=== PATIENT | male | born 1970 | race Caucasian/White ===

== ENCOUNTER 2017-10-19 23:36 | Day surgery (SDC) | payer OTHER ==
[2017-10-19 23:53] VITALS: BMI 26.4
--- NOTE | 2017-10-20 01:23 | PDOC ---
History of Present Illness - History of Present Illness Initial Comments: 10/20/17 01:28 The patient is a 47 yo Male, with no significant past medical history, who presents to the emergency department for evaluation of diffuse abdominal pain since 6PM last night (7.5 hours ago). The patient reports his pain was a dull ache at onset around 6PM. He states the pain did not resolve which is why he presents to the ED at this time. He reports his pain is slightly worse to the lower quadrants bilaterally, however, reports "the pain is pretty much the same everywhere". He denies nausea, vomiting, diarrhea. He denies recent travels or sick contacts. He denies chest pain, SOB, dizziness. He denies dysuria, urgency, frequency, or hematuria. <Tia Villegas - Last Filed: 10/20/17 01:28> <Jenn Robles - Last Filed: 10/20/17 16:55> - General Chief Complaint: Pain Stated Complaint: STOMACH PAIN Time Seen by Provider: 10/20/17 00:42 Past History <Tia Villegas - Last Filed: 10/20/17 01:28> - Past Medical History COPD: No - Suicide/Smoking/Psychosocial Hx Smoking History: Never smoked <Jenn Robles - Last Filed: 10/20/17 16:55> - Past Medical History Allergies/Adverse Reactions: Allergies Allergy/AdvReac Type Severity Reaction Status Date / Time No Known Allergies Allergy Verified 10/19/17 23:53 Home Medications: Ambulatory Orders NK [No Known Home Medication] 10/20/17 Review of Systems - Review of Systems Able to Perform ROS?: Yes Comments:: 10/20/17 01:32 CONSTITUTIONAL: Absent: fever, chills, diaphoresis, generalized weakness, malaise, loss of appetite HEENT: Absent: rhinorrhea, nasal congestion, throat pain, throat swelling, difficulty swallowing, mouth swelling, ear pain, eye pain, visual Changes CARDIOVASCULAR: Absent: chest pain, syncope, palpitations, irregular heart rate, lightheadedness , peripheral edema RESPIRATORY: Absent: cough, shortness of breath, dyspnea with exertion, orthopnea, wheezing, stridor, hemoptysis GASTROINTESTINAL: (+) diffuse abdominal pain,Absent: abdominal distension, nausea, vomiting, diarrhea, constipation, melena, hematochezia GENITOURINARY: Absent: dysuria, frequency, urgency, hesitancy, hematuria, flank pain, genital pain MUSCULOSKELETAL: Absent: myalgia, arthralgia, joint swelling SKIN: Absent: rash, itching, pallor HEMATOLOGIC/IMMUNOLOGIC: Absent: easy bleeding, easy bruising, lymphadenopathy, frequent infections ENDOCRINE: Absent: unexplained weight gain, unexplained weight loss, heat intolerance, cold intolerance NEUROLOGIC: Absent: headache, focal weakness or paresthesias, dizziness, unsteady gait, seizure, mental status changes, bladder or bowel incontinence PSYCHIATRIC: Absent: anxiety, depression, suicidal or homicidal ideation, hallucinations. <Tia Villegas - Last Filed: 10/20/17 01:28> *Physical Exam - Vital Signs Last Vital Signs Temp Pulse Resp BP Pulse Ox 97.7 F 59 L 18 119/62 99 10/19/17 23:50 10/19/17 23:50 10/19/17 23:50 10/19/17 23:50 10/19/17 23:50 - Physical Exam Comments: 10/20/17 01:32 GENERAL: Well developed, well nourished. Awake and alert. No acute distress. HEENT: Normocephalic, atraumatic. PERRLA, EOMI. No conjunctival pallor. Sclera are non- icteric. Moist mucous membranes. Oropharynx is clear. NECK: Supple. Full ROM. No JVD. Carotid pulses 2+ and symmetric, without bruits. No thyromegaly. No lymphadenopathy. CARDIOVASCULAR: Regular rate and rhythm. No murmurs, rubs, or gallops. Distal pulses are 2+ and symmetric. PULMONARY: No evidence of respiratory distress. Lungs clear to auscultation bilaterally. No wheezing, rales or rhonchi. ABDOMINAL: (+) diffuse discomfort to palpation (greater in the lower quadrants). Soft. Non- distended. No rebound or guarding. No organomegaly. Normoactive bowel sounds. MUSCULOSKELETAL Normal range of motion at all joints. No bony deformities or tenderness. No CVA tenderness. EXTREMITIES: No cyanosis. No clubbing. No edema. No calf tenderness. SKIN: Warm and dry. Normal capillary refill. No rashes. No jaundice. NEUROLOGICAL: Alert, awake, appropriate. Cranial nerves 2-12 intact. Normoreflexic in the upper and lower extremities. Normal speech. Toes are down-going bilaterally. Gait is normal without ataxia. PSYCHIATRIC: Cooperative. Good eye contact. Appropriate mood and affect. <Tia Villegas - Last Filed: 10/20/17 01:28> - Vital Signs Last Vital Signs Temp Pulse Resp BP Pulse Ox 97.7 F 59 L 18 119/62 99 10/19/17 23:50 10/19/17 23:50 10/19/17 23:50 10/19/17 23:50 10/19/17 23:50 <Jenn Robles - Last Filed: 10/20/17 16:55> ED Treatment Course - LABORATORY CBC & Chemistry Diagram: 10/20/17 01:44 10/20/17 01:44 <Jenn Robles - Last Filed: 10/20/17 16:55> Medical Decision Making - Medical Decision Making 10/20/17 16:54 pt was signed out to Dr Mcconnell/ ct scan pending <Jenn Robles - Last Filed: 10/20/17 16:55> *DC/Admit/Observation/Transfer - Attestations Scribe Attestion: 10/20/17 01:32 Documentation prepared by Tia Villegas, acting as medical safety director for Jenn Robles MD <Tia Villegas - Last Filed: 10/20/17 01:28> <Jenn Robles - Last Filed: 10/20/17 16:55> Diagnosis at time of Disposition: Acute appendicitis - Discharge Dispostion Condition at time of disposition: Stable
[2017-10-20 01:55] LABS: BASO % 0.5 % (0-2.0); EOS % 1.4 % (0-4.5); MCHC 33.5 g/dl (32.0-35.9); MEAN CELL VOLUME 92.6 fl (80-96); MEAN PLT VOLUME 8.1 fl (7.5-11.1); NEUT % 76.9 % (42.8-82.8); PLATELET COUNT 247 K/MM3 (134-434); RDW 12.9 % (11.9-15.9)
[2017-10-20 01:56] LABS: URINE APPEARANCE CLEAR; URINE BILIRUBIN NEGATIVE (NEGATIVE); URINE BLOOD NEGATIVE (NEGATIVE); URINE COLOR LTYELLOW; URINE GLUCOSE (UA) NEGATIVE (NEGATIVE); URINE KETONE NEGATIVE (NEGATIVE); URINE LEUK ESTERASE NEGATIVE (NEGATIVE); URINE NITRITE NEGATIVE (NEGATIVE); URINE PROTEIN NEGATIVE (NEGATIVE); URINE UROBILINOGEN NEGATIVE mg/dL (0.2-1.0)
[2017-10-20 02:19] LABS: ALBUMIN 3.6 g/dl (3.4-5.0); ALK PHOS 78 U/L (45-117); ANION GAP 6 (8-16); BILIRUBIN,TOTAL 0.5 mg/dL (0.2-1.0); CO2 31 mmol/L (21-32); CREATININE 1.4 mg/dL (0.7-1.3); GLUCOSE,RANDOM 103 mg/dL (74-106); SGOT/AST 19 U/L (15-37); SGPT/ALT 29 U/L (12-78); TOT PROT 6.9 g/dl (6.4-8.2)
[2017-10-20] MEDS ORDERED: SODIUM CHLORIDE 1,000 ML IV STA ×2 (02:24→02:26)
[2017-10-20] MEDS ORDERED: SODIUM CHLORIDE 1,000 ML IV SCH ×2 (06:00→08:52)
--- NOTE | 2017-10-20 06:03 | PDOC ---
*Physical Exam - Vital Signs Last Vital Signs Temp Pulse Resp BP Pulse Ox 97.7 F 59 L 18 119/62 99 10/19/17 23:50 10/19/17 23:50 10/19/17 23:50 10/19/17 23:50 10/19/17 23:50 ED Treatment Course - LABORATORY CBC & Chemistry Diagram: 10/20/17 01:44 10/20/17 01:44 - ADDITIONAL ORDERS Additional order review: Laboratory Results 10/20/17 10/20/17 01:44 01:44 Sodium 139 Potassium 4.5 Chloride 102 Carbon Dioxide 31 Anion Gap 6 L BUN 23 H Creatinine 1.4 H Creat Clearance w eGFR 54.56 Random Glucose 103 Calcium 9.0 Total Bilirubin 0.5 AST 19 ALT 29 Alkaline Phosphatase 78 Total Protein 6.9 Albumin 3.6 Lipase 206 Urine Color Ltyellow Urine Appearance Clear Urine pH 5.0 Ur Specific [place] 1.021 Urine Protein Negative Urine Glucose (UA) Negative Urine Ketones Negative Urine Blood Negative Urine Nitrite Negative Urine Bilirubin Negative Urine Urobilinogen Negative 10/20/17 01:44 RBC 4.50 MCV 92.6 MCHC 33.5 RDW 12.9 MPV 8.1 Neutrophils % 76.9 Lymphocytes % 11.4 Monocytes % 9.8 Eosinophils % 1.4 Basophils % 0.5 - RADIOLOGY Radiology Studies Ordered: Category Date Time Status ABDOMEN & PELVIS CT WITH CONTR [CT] Stat CT Scan 10/20/17 02:24 Taken - Medications Given in the ED: ED Medications Discontinued Medications Generic Name Dose Route Start Last Admin Trade Name Freq PRN Reason Stop Dose Admin Sodium Chloride 1,000 mls @ 1,000 mls/hr 10/20/17 02:24 10/20/17 02:38 Normal Saline - IV 10/20/17 03:23 1,000 mls/hr ASDIR STA Administration Sodium Chloride 1,000 mls @ 1,000 mls/hr 10/20/17 02:26 10/20/17 02:39 Normal Saline - IV 10/20/17 03:25 1,000 mls/hr ASDIR STA Administration Medical Decision Making - Medical Decision Making 10/20/17 06:02 Pt endorsed to me by Dr. Robles at 2am shift change, awaiting CT to evaluate abd pain. CT was read as positive by Imaging chief controller station. D/w patient, will call surgical consult. *DC/Admit/Observation/Transfer Diagnosis at time of Disposition: Acute appendicitis Qualifiers: Acute appendicitis type: unspecified acute appendicitis type Qualified Code(s) : K35.80 - Unspecified acute appendicitis - Discharge Dispostion Condition at time of disposition: Stable Admit: Yes - Referrals Referrals: Chani Woods MD [Primary Care Provider] - - Patient Instructions - Post Discharge Activity
[2017-10-20] MEDS ORDERED: PIPERACILLIN/TAZOB 3.375 GM 50 ML IVPB ONE (06:35)
[2017-10-20] MEDS ORDERED: PIPERACILLIN/TAZOB 3.375 GM 3.375 GM/50 ML BAG IVPB ONE (06:57)
[2017-10-20 07:43] LABS: PROTHROMBIN TIME (PATIENT) 11.3 SEC (9.98-11.88)
[2017-10-20 09:23] LABS: URINE LEUK ESTERASE NEGATIVE (NEGATIVE)
[2017-10-20] MEDS ORDERED: morphine CARPU-JECT 2 MG/1 ML DISP.SYRIN IVPUSH PRN (10:01)
--- NOTE | 2017-10-20 10:11 | HP ---
Admitting History and Physical - Admission Chief Complaint: abdominal pain History of Present Illness: 47yo healthy M with diet-controlled high cholesterol presented with generalized abdominal discomfort starting Thursday, but he thought it was just needing to use the bathroom. It came and went but was never too uncomfortable, and was not associated with f/c, n/v, d/c or urinary symptoms. He was able to work and workout/exercise. Yesterday, the pain was still there after work, and it began to be more noticeable in the bilateral lower quadrants. He took an omeprazole, but the pain persisted, so he came to the ER. He is afebrile, wbc 10, BUN/Cr mildly elevated, and CT showed acute appendicitis with a dilated appendix to 16mm with surrounding inflammatory changes. His pain is much less after medication in the ER. He has been given IV fluids and a dose of Zosyn, and has been NPO since last night other than contrast. History Source: Patient Limitations to Obtaining History: No Limitations - Past Medical History Cardiovascular: Yes: Hyperlipdemia - Past Surgical History Past Surgical History: Yes: None - Smoking History Smoking history: Never smoked Have you smoked in the past 12 months: No - Alcohol/Substance Use Hx Alcohol Use: Yes (rarely) History of Substance Use: reports: None - Social History Usual Living Arrangement: Yes: With Spouse ADL: Independent Occupation: [employer] Home Medications - Allergies Allergies/Adverse Reactions: Allergies Allergy/AdvReac Type Severity Reaction Status Date / Time No Known Allergies Allergy Verified 10/19/17 23:53 - Home Medications Home Medications: Ambulatory Orders NK [No Known Home Medication] 10/20/17 Family Disease History - Family Disease History Family Disease History: Other: Father (hypertension), Mother (HLD, thyroid) Review of Systems - Review of Systems Constitutional: denies: Chills, Fever, Loss of Appetite Eyes: denies: Blurred Vision, Recent Change in Vision HENT: denies: Difficult Swallowing, Hearing Loss, Nasal Congestion, Throat Pain Neck: denies: Swollen Glands, Tenderness Cardiovascular: denies: Chest Pain, Palpitations Respiratory: denies: Cough, SOB Gastrointestinal: reports: Abdominal Pain (with hpi). denies: Constipation, Diarrhea, Nausea, Vomiting Genitourinary: denies: Burning, Dysuria Musculoskeletal: denies: Back Pain, Joint Pain, Muscle Pain Integumentary: denies: Change in Color, Rash Neurological: denies: Dizziness, Headache Psychiatric: denies: Anxiety, Depression Physical Examination Vital Signs: Vital Signs Temperature 97.7 F 10/19/17 23:50 Pulse Rate 59 L 10/20/17 07:04 Respiratory Rate 18 10/20/17 07:04 Blood Pressure 105/65 10/20/17 07:04 O2 Sat by Pulse Oximetry (%) 99 10/20/17 07:04 Constitutional: Yes: Well Nourished, No Distress, Calm Eyes: Yes: Conjunctiva Clear, EOM Intact HENT: Yes: Atraumatic, Normocephalic Neck: Yes: Supple, Trachea Midline Cardiovascular: Yes: Regular Rate and Rhythm. No: Murmur Respiratory: Yes: Regular, CTA Bilaterally Gastrointestinal: Yes: Normal Bowel Sounds, Soft, Hernia (tiny umbilical palpable), Tenderness (RLQ at McBurney's without rebound or guarding). No: Distention, Tenderness, Epigastrium, Tenderness, Rebound ...Rectal Exam: Yes: Deferred Renal/: No: CVA Tenderness - Left, CVA Tenderness - Right Musculoskeletal: No: Joint Stiffness, Joint Swelling Extremities: No: Cool, Cyanosis Edema: No Peripheral Pulses WNL: Yes Integumentary: No: Jaundice, Rash Neurological: Yes: Alert, Oriented Psychiatric: Yes: Alert, Oriented Labs: CBC, BMP 10/20/17 01:44 10/20/17 01:44 CMP Sodium 139 mmol/L (136-145) 10/20/17 01:44 Potassium 4.5 mmol/L (3.5-5.1) 10/20/17 01:44 Chloride 102 mmol/L (98-107) 10/20/17 01:44 Carbon Dioxide 31 mmol/L (21-32) 10/20/17 01:44 Anion Gap 6 (8-16) L 10/20/17 01:44 BUN 23 mg/dL (7-18) H 10/20/17 01:44 Creatinine 1.4 mg/dL (0.7-1.3) H 10/20/17 01:44 Creat Clearance w eGFR 54.56 (>60) 10/20/17 01:44 Random Glucose 103 mg/dL (74-106) 10/20/17 01:44 Calcium 9.0 mg/dL (8.5-10.1) 10/20/17 01:44 Total Bilirubin 0.5 mg/dL (0.2-1.0) 10/20/17 01:44 AST 19 U/L (15-37) 10/20/17 01:44 ALT 29 U/L (12-78) 10/20/17 01:44 Alkaline Phosphatase 78 U/L (45-117) 10/20/17 01:44 Total Protein 6.9 g/dl (6.4-8.2) 10/20/17 01:44 Albumin 3.6 g/dl (3.4-5.0) 10/20/17 01:44 Lipase 206 U/L (73-393) 10/20/17 01:44 Urine Test Results Urine Color Ltyellow 10/20/17 01:44 Urine Appearance Clear 10/20/17 01:44 Urine pH 5.0 (5.0-8.0) 10/20/17 01:44 Ur Specific [place] 1.021 (1.001-1.035) 10/20/17 01:44 Urine Protein Negative (NEGATIVE) 10/20/17 01:44 Urine Glucose (UA) Negative (NEGATIVE) 10/20/17 01:44 Urine Ketones Negative (NEGATIVE) 10/20/17 01:44 Urine Blood Negative (NEGATIVE) 10/20/17 01:44 Urine Nitrite Negative (NEGATIVE) 10/20/17 01:44 Urine Bilirubin Negative (NEGATIVE) 10/20/17 01:44 Ur Leukocyte Esterase Negative (NEGATIVE) 10/20/17 01:44 INR, PTT INR 1.00 (0.82-1.09) 10/20/17 06:55 Imaging - Results Cat Scan: Report Reviewed, Image Reviewed Problem List - Problems (1) Acute appendicitis Assessment/Plan: admit 23H/satellite NPO/IVF until after surgery periop antibiotics pain meds prn DVT prophylaxis Discussed with patient risks, benefits and alternatives of laparoscopic possible open appendectomy, including but not limited to bleeding, infection, injury to adjacent structures, intestinal leak or injury, intraabdominal abscess , need for further procedures, ; alternatives include antibiotics, delayed or no surgery - risks of this include failure of nonoperative therapy, perforation, sepsis, recurrence, . Patient desires to proceed with operation - will take to OR for above. Informed consent signed for same. anticipate resuming po postop Code(s): K35.80 - UNSPECIFIED ACUTE APPENDICITIS Qualifiers: Acute appendicitis type: unspecified acute appendicitis type Qualified Code (s): K35.80 - Unspecified acute appendicitis (2) Hyperlipidemia Code(s): E78.5 - HYPERLIPIDEMIA, UNSPECIFIED Qualifiers: Hyperlipidemia type: unspecified Qualified Code(s): E78.5 - Hyperlipidemia , unspecified
[2017-10-20] MEDS ORDERED: BUPIVACAINE HCL/PF 0.5% (5MG/ML) 10 ML VIAL ONE (11:05)
[2017-10-20] MEDS ORDERED: CEFOXITIN SODIUM 2 GM IVPB ONE (11:08)
[2017-10-20] MEDS ORDERED: PROPOFOL 20 ML ONE ×2 (11:15→11:35)
[2017-10-20] MEDS ORDERED: MIDAZOLAM HCL 2 MG/2 ML SINGLE DOSE VIAL ONE (11:16)
[2017-10-20] MEDS ORDERED: SODIUM CHLORIDE 0.9% P/F 10 ML VIAL IJ ONE (11:17)
[2017-10-20] MEDS ORDERED: cefOXitin SODIUM 1 GM VIAL (RESTRICTED TO ID) IVPB ONE (11:30)
[2017-10-20] MEDS ORDERED: LIDOCAINE HCL/PF 2% SDV 5ML VIAL ONE (11:38)
[2017-10-20] MEDS ORDERED: DEXAMETHASONE SOD PHOSPHATE 4 MG/1 ML VIAL ONE (11:40)
[2017-10-20] MEDS ORDERED: KETOROLAC TROMETHAMINE 30 MG/1 ML VIAL ONE (12:52)
[2017-10-20] MEDS ORDERED: BUPIVACAINE HCL/PF (5 MG/ML) 30 ML VIAL IJ ONE (12:55)
[2017-10-20] MEDS ORDERED: ACETAMINOPHEN 325 MG TABLET (FP) PO PRN (13:32)
--- NOTE | 2017-10-20 13:32 | OP ---
Operative Note - Note: Operative Date: 10/20/17 Pre-Operative Diagnosis: acute appendicitis Operation: laparoscopic appendectomy Findings: inflamed, enlarged appendix, normal base Post-Operative Diagnosis: Same as Pre-op Surgeon: Gage Riley District Fire Chief: Dano Rueda Anesthesiologist/LAY UP OPERATOR: Ron Reardon Anesthesia: General, Local (10 ml 0.5% marcaine) Specimens Removed: appendix to pathology Estimated Blood Loss (mls): 3 Drains & Tubes with Location: Hurd removed at end of case Drains, Volume Out (mls): 300 (UOP) Fluid Volume Replaced (mls): 1,400 (crystalloid) Operative Report Dictated: Yes
[2017-10-20] MEDS ORDERED: oxyCODONE HCL 5 MG TABLET PO PRN (13:33)
[2017-10-20] MEDS ORDERED: morphine SULFATE 4 MG/ML VIAL IVPUSH PRN (13:36)
[2017-10-20] MEDS ORDERED: CEFOXITIN SODIUM 2 GM in DEXTROSE 5%-WATER - 100 ML IVPB ONE (18:00)
[2017-10-20] MEDS ORDERED: cefOXitin SODIUM 2 GM VIAL (RESTRICTED TO ID) IVPB ONE (18:00)
[2017-10-20] MEDS: SODIUM CHLORIDE 1,000 ML IV SCH (18:29)
[2017-10-20] MEDS ORDERED: IBUPROFEN 600 MG TABLET (FP) PO PRN (19:00)
[2017-10-21] MEDS: SODIUM CHLORIDE 1,000 ML IV SCH (05:08)
--- NOTE | 2017-10-21 10:26 | DS ---
Physical Examination Vital Signs: Vital Signs Temperature 98 F 10/21/17 05:00 Pulse Rate 58 L 10/21/17 05:00 Respiratory Rate 18 10/21/17 05:00 Blood Pressure 92/50 10/21/17 05:00 O2 Sat by Pulse Oximetry (%) 97 10/20/17 21:00 Findings/Remarks: Pt seen and examined in bed. Tolerating diet, voiding. No flatus or BM yet. Minimal pain. No pain meds used yet. Hurts to cough. Constitutional: Yes: Well Nourished, No Distress, Calm Eyes: Yes: Conjunctiva Clear, EOM Intact HENT: Yes: Atraumatic, Normocephalic Cardiovascular: Yes: Regular Rate and Rhythm. No: Murmur Respiratory: Yes: Regular, CTA Bilaterally Gastrointestinal: Yes: Normal Bowel Sounds, Soft, Distention (mild), Tenderness (mild RLQ, incisional, no R/G) Extremities: No: Cool, Cyanosis Edema: No Integumentary: Yes: Incision (x3 dressed). No: Rash Wound/Incision: Yes: Steri Strips (under dressings), Dressing Dry and Intact (x3 ). No: Dressing Removed Neurological: Yes: Alert, Oriented Psychiatric: Yes: Alert, Oriented Discharge Summary Reason For Visit: ACUTE APPENDICITIS Current Active Problems Acute appendicitis (Acute) Hyperlipidemia (Acute) Procedures: Principal: laparoscopic appendectomy Hospital Course: 47yo healthy M was admitted through ER with 2d of generalized abdominal pain, mild but persistent, eventually getting worse and localizing to lower quadrants. In the ER, he had a wbc of 10, and CT showed acute appendicitis with an appendix dilated to 13mm with inflammatory changes and some fluid present, but no abscess or perforation. He was taken for uneventful laparoscopic appendectomy and given perioperative antibiotics and fluids. Postoperatively, he has tolerated a diet, is ambulating and voiding, and pain is minimal and not yet required medication. He is discharged home to take Tylenol and ibuprofen prn , avoid heavy lifting and exertion for a few weeks, and to follow up in 2 weeks. He is also advised to f/u with his PMD soon. Condition: Good - Instructions Diet, Activity, Other Instructions: Postoperative instructions: You had a laparoscopic appendectomy on 10/20/[address] Gage Riley of [facility]. Activity: Resume your usual activities gradually, but no heavy exertion or lifting more than 20 pounds for 3-4 weeks. Remove dressings 48 hours after surgery; sticky tapes underneath will fall off by themselves. You may shower daily starting then, just pat the incision areas dry. No bath or swimming until skin incisions are fully healed. Eat lightly at first, but advance to your usual diet as tolerated. Pain: For pain, you may use and alternate Tylenol (acetaminophen) and/or ibuprofen every 6 hours each as needed; this means that you can take one OR the other at 3-hour intervals. Do not take more than 4000mg of acetaminophen in a day. Take medications as prescribed or indicated on the labeling. Follow-up: Call Dr. Riley's office at [phone] to make your postop appointment (Thursday ~2 weeks after surgery). Clinic is held in the Diagnostic Center on the first floor of [facility]. Call the office if you have: * increasing pain not responsive to pain medication * fever of 101F or higher * vomiting * unusual or increasing bleeding or drainage from wounds * increasing redness or swelling at wound sites * inability to urinate Also, see Dr. New Gillis (PMD) within 1-2 weeks. Referrals: Adolfo Gillis MD [Non Staff, Medical] - Disposition: HOME - Home Medications Comprehensive Discharge Medication List: Ambulatory Orders Acetaminophen [Tylenol .Regular Strength -] 650 mg PO Q6H PRN tablet 10/21/17 Ibuprofen [Motrin -] 600 mg PO Q6H PRN tablet 10/21/17
[2017-10-21 10:46] VITALS: BP 101/54; PULSE 94; TEMP 98.1
--- NOTE | 2017-10-21 13:56 | PATH ---
Surgical Pathology Report Patient Name: THERESE MAURO [facility]. Rec. #: [id number] /Age/Gender: 1970 (Age: 47) / M Account: [id number] Location: AMBULATORY SURG Taken: 10/20/2017 Received: 10/20/2017 Reported: 10/21/2017 Physicians: Gage Riley M.D. Specimen(s) Received APPENDIX Clinical History Acute appendicitis Final Diagnosis APPENDIX, APPENDECTOMY: ACUTE APPENDICITIS AND PERIAPPENDICITIS. Electronically Signed Anton Brown M.D. Gross Description Received in formalin, labeled "appendix," is a 5 cm. in length vermiform appendix with a stapled margin of resection and moderate attached fat. The serosa is mederos-pink with attached exudate. Sectioning reveals a focally hemorrhagic lumen containing pus. The wall of the appendix averages 0.2 cm. in thickness. [employer] sections are submitted in one cassette. 10/20/201710/20/2017
--- NOTE | 2017-10-23 10:54 | OP ---
DATE OF OPERATION: 10/20/2017 PREOPERATIVE DIAGNOSIS: Acute appendicitis. POSTOPERATIVE DIAGNOSIS: Acute appendicitis. PROCEDURE: Laparoscopic appendectomy. SURGEON: Gage Riley MD SCIENCE TECHNICIAN: Dano Rueda MS-3 ANESTHESIA: General endotracheal and local (10 mL of 0.5% Marcaine). ESTIMATED BLOOD LOSS: 3 mL FLUIDS: 1400 mL of crystalloid. URINE OUTPUT: 300 mL. SPECIMEN: Appendix to Pathology. FINDINGS: An inflamed, enlarged appendix with a normal base. DISPOSITION: Stable and extubated to PACU. INDICATIONS FOR PROCEDURE: The patient is a 47-year-old, healthy male with diet-controlled high cholesterol, who presented to the emergency room with 2 days' worth of generalized abdominal discomfort which came and went, had not been associated with other symptoms, but persisted and eventually became more significant and radiated to bilateral lower quadrants. In the emergency room, he was afebrile with a white count of 10 and some dehydration, with a mildly elevated BUN and creatinine. A CT scan showed acute appendicitis, with a dilated appendix to 13 mm with surrounding inflammatory changes, and he was started on IV fluids and antibiotics, and had been n.p.o. since the night before. Risks, benefits, and alternatives of laparoscopic, possible open appendectomy were discussed with the patient including, but not limited to, bleeding, infection, injury to adjacent structures, intestinal leak or injury, intraabdominal abscess, hernia, need for further procedures, or . Alternatives including antibiotics and delayed or no surgery with attendant risks of failure of nonoperative therapy, perforation, sepsis, and recurrence were also discussed, and the patient does desire to proceed with operation. Informed consent was signed for the same, and he was brought to the operating room for appendectomy. OPERATIVE TECHNIQUE: The patient was brought to the operating room and laid supine on the operating table. Sequential compression devices were applied to bilateral lower extremities. Two grams of cefoxitin were given immediately preoperatively as the previous dose of Zosyn had only been given 4 hours prior. After induction and intubation by Anesthesia, the patient's lower abdomen was clipped of hair, prepped and draped in sterile fashion. A small infraumbilical incision was made with a scalpel and carried into subcutaneous tissues with electrocautery, until the abdominal wall fascia was identified, scored, and elevated with Kenneth clamps. The peritoneum was entered bluntly with the tip of a clamp, and a fingertip inserted to ensure entry into the abdominal cavity and the absence of any underlying adhesions. A stay suture of 0 Vicryl was placed in the fascia in figure-of-8 fashion for later closure, and a Monica trocar introduced directly into the abdominal cavity and secured with the balloon. The abdomen was insufflated with carbon dioxide. The patient was placed in Trendelenburg position, and a laparoscope inserted to inspect the abdominal cavity. Two additional 5-mm ports were placed under direct vision in the suprapubic and left lower quadrant areas, and the camera was switched to the left lower quadrant port. Graspers were introduced through the other two and used to manipulate the small bowel away from the right side, revealing the inflamed and enlarged distal appendix, which appeared to be somewhat adherent to the veil of Treves. The appendix was grasped and gently and bluntly from the adjacent fat of the veil of Treves. The base was noted to be normal where it joined the cecum. With a [place] dissector, a window was created at the base of the appendix, such that a blue load of the Endo BEBO stapler could be introduced and used to transect the appendix at the cecal junction. The staple line was hemostatic. The appendix was then grasped and bluntly freed the rest of the way from a few adhesion points to the veil of Treves and adjacent fat. It was then elevated, and a white load of the Endo EBBO stapler used to transect the mesoappendix completely. Again, there was no bleeding from the staple line. The appendix was set aside in the right lower quadrant briefly, while the suction meter repairer helper was used to irrigate with saline solution and suction fluid and blood from the operative site in the right lower quadrant, and also from the pelvis. There was no active bleeding. The appendix was then placed in an Endo Catch bag and drawn up into the umbilical port. The patient was returned to neutral position, and the small bowel returned to the right lower quadrant to cover the operative site. The Monica trocar, with the appendix in the bag, was removed under direct vision from that site. The suprapubic port was also removed under direct vision, and the camera and remaining port were withdrawn, and the abdomen exsufflated of carbon dioxide. The appendix was passed off for a pathology specimen. The stay suture at the umbilical site was tied to close the fascia there. Hemostasis was achieved in the port sites with electrocautery where necessary, and local anesthetic was infiltrated into all 3 sites. The skin was closed with 4-0 Vicryl subcuticular sutures, including a running at the umbilical site. Benzoin and Steri-Strips were applied to all incisions, which were then covered with dressings of gauze and Tegaderm. Counts were correct at the end of the procedure. The patient was then awakened and extubated by Anesthesia, moved back to a stretcher, and taken to the recovery room in stable condition, having tolerated the procedure well. Og [id number] MTDD
== END 2017-10-21 13:16 | disposition home or self-care (01) ==
LOC: JER 23:36 → JERBED 10-20 07:29 → UNDOADMIN 10-20 07:29 → JASUSAT 10-20 07:29 → J7W 10-20 17:40 → JASUSAT 10-21 13:16
PROVIDERS: ATTEND Surgery
PROC: 0DTJ4ZZ Resection of Appendix, Percutaneous Endoscopic Approach (ICD-10-PCS; principal; 2017-10-20 14:00)
DX: K35.89 Other acute appendicitis (principal)
CPT/HCPCS: 36415; 74177-TC; 80053; 81003; 83690; 85025; 85610; 86850; 86900; 86901; 88304-TC; 94760; 99285-25

== ENCOUNTER 2018-08-30 06:09 | Day surgery (SDC) | payer OTHER ==
[2018-08-26 15:18] VITALS: BMI 27.4
[2018-08-30] MEDS ORDERED: MIDAZOLAM HCL 2 MG/2 ML SINGLE DOSE VIAL ONE (07:44)
[2018-08-30] MEDS ORDERED: PROPOFOL 20 ML ONE (07:44)
[2018-08-30] MEDS ORDERED: LIDOCAINE HCL/PF 2% SDV 5ML VIAL ONE (07:45)
[2018-08-30] MEDS ORDERED: KETOROLAC TROMETHAMINE 30 MG/1 ML VIAL ONE (08:45)
--- NOTE | 2018-08-30 09:44 | OP ---
Operative Note - Note: Operative Date: 08/30/18 Pre-Operative Diagnosis: Left renal stone Operation: Left ESWL Findings: 7 mm mid pole Left renal stone Surgeon: Marcelo Myles Anesthesia: Fractional Estimated Blood Loss (mls): 0
[2018-08-30 11:36] VITALS: BP 105/64; PULSE 54; TEMP 98
--- NOTE | 2018-08-30 21:01 | OP ---
DATE OF OPERATION: 08/30/2018 PREOPERATIVE DIAGNOSIS: Left renal stone. POSTOPERATIVE DIAGNOSIS: Left renal stone. PROCEDURE: Left extracorporeal shockwave lithotripsy. ATTENDING: Fatoumata Myles M.D. ANESTHESIA: Fractional. DESCRIPTION OF PROCEDURE: Patient was brought in the operating room, placed in a supine position on the operating room table. Ultrasonography and fluoroscopy were performed. A left mid pole 7-mm stone was identified. Anesthesia was administered as were preoperative antibiotics. Shockwave lithotripsy was subsequently started. 2500 impulses at 18 joules of power were administered to stone with excellent fragmentation under real time ultrasonography and fluoroscopy. No complications were noted. DISPOSITION: To recovery room. FATOUMATA FRAGOSO M.D. [id number]
== END 2018-08-30 11:10 | disposition home or self-care (01) ==
LOC: JASU-SURG 06:09
PROVIDERS: ATTEND Urology
PROC: 0TF4XZZ Fragmentation in Left Kidney Pelvis, External Approach (ICD-10-PCS; principal; 2018-08-30 08:00)
DX: N20.0 Calculus of kidney (principal)

== ENCOUNTER 2022-02-24 04:34 | Day surgery (SDC) | payer OTHER ==
[2022-02-20 11:31] VITALS: BMI 27.4
[2022-02-24] MEDS ORDERED: MIDAZOLAM HCL 2 MG/2 ML SINGLE DOSE VIAL ONE (14:11)
[2022-02-24] MEDS ORDERED: ONDANSETRON 4 MG/2 ML VIAL ONE (14:43)
[2022-02-24 15:24] VITALS: BP 101/52; PULSE 56; TEMP 97.1
== END 2022-02-24 16:05 | disposition home or self-care (01) ==
LOC: JASU-SURG 04:34
PROVIDERS: ATTEND Urology
PROC: 0TF4XZZ Fragmentation in Left Kidney Pelvis, External Approach (ICD-10-PCS; principal; 2022-02-24 13:30)
DX: N20.0 Calculus of kidney (principal)